=== PATIENT | male | born 1985 | race Caucasian/White ===

== ENCOUNTER 2021-04-14 16:30 | Emergency (ER) | payer BC ==
--- NOTE | 2021-04-14 17:14 | EDM.PDOC ---
ED HPI GENERAL MEDICAL PROBLEM - General Chief Complaint: Respiratory Problem Stated Complaint: SOB Time Seen by Provider: 04/14/21 16:36 Source of Information: Reports: Patient, RN Notes Reviewed History Limitations: Reports: No Limitations - History of Present Illness INITIAL COMMENTS - FREE TEXT/NARRATIVE: Patient is a 36-year-old male who presents to the ER for evaluation of his shortness of breath. Patient states he was at work around 2 PM, when he had a sudden sensation of feeling short of breath, and had some associated chest pressure. States he has not felt anything like this before. States that it got a little bit better prior to arrival to the ER, but when he gets back to the ER, he is still having some chest pressure and the sensation of shortness of breath. He is denying any fevers or chills, cough, or any sort of nausea/vomiting/diarrhea. He did not take any sort of medications for the discomfort. States he was told he had a history of atrial fibrillation and was on medications at some time, but is not taking any of these medications any longer because he was told he could quit. EKG done at time of triage demonstrates no sign of acute rhythm change like atrial fibrillation or any obvious ST change like ischemia. Patient states that he does work outside, and has been rather winded for the last few days, and somewhat ely please not sure if that has something to do with it as well. Patient is also requesting to be tested for COVID-19. Middle Chest Pain Score (Numeric/FACES): 8 - Related Data Allergies Allergy/AdvReac Type Severity Reaction Status Date / Time No Known Allergies Allergy Verified 04/14/21 16:38 Home Meds: Home Meds . [No Known Home Meds] 04/14/21 [History] Past Medical History Cardiovascular History: Reports: Afib ED ROS GENERAL - Review of Systems Review Of Systems: Comprehensive ROS is negative, except as noted in HPI. ED EXAM, GENERAL - Physical Exam Exam: See Below Exam Limited By: No Limitations General Appearance: Alert, WD/WN, No Apparent Distress, Anxious (generalized) Respiratory/Chest: No Respiratory Distress, Lungs Clear, Normal Breath Sounds, No Accessory Muscle Use, Chest Non-Tender Cardiovascular: Normal Peripheral Pulses, Regular Rate, Rhythm, No Edema Peripheral Pulses: 2+: Radial (L), Radial (R) GI/Abdominal: Normal Bowel Sounds, Soft, Non-Tender, No Distention, No Mass Extremities: Normal Inspection, Normal Capillary Refill Neurological: Alert, Oriented, Normal Cognition, No Motor/Sensory Deficits Psychiatric: Normal Affect, Normal Mood, Anxious (generalized) Skin Exam: Warm, Dry, Intact, Normal Color, No Rash #1 Interpretation EKG Date: 04/14/21 Time: 17:05 Rhythm: NSR Rate (Beats/Min): 80 [place]: Normal P-Wave: Present QRS: Normal ST-T: Normal QT: Normal Comparison: NA - No Prior EKG EKG Interpretation Comments: No obvious ischemia or acute ST changes noted, reviewed by myself and Dr. Chambers. Course - Vital Signs Last Recorded V/S: Last Vital Signs Temp 97.2 F 04/14/21 16:35 Pulse 83 04/14/21 16:35 Resp 18 04/14/21 16:35 BP 147/81 H 04/14/21 16:35 Pulse Ox 97 04/14/21 16:35 - Orders/Labs/Meds Orders: Active Orders 24 hr Category Date Time Status Chest 1V Frontal [CR] Stat Exams 04/14/21 16:39 Ordered Labs: Laboratory Tests 04/14/21 04/14/21 04/14/21 Range/Units 16:51 16:51 17:10 WBC 6.64 (4.23-9.07) K/mm3 RBC 4.78 (4.63-6.08) M/mm3 Hgb 15.3 (13.7-17.5) gm/dl Hct 43.9 (40.1-51.0) % MCV 91.8 (79.0-92.2) fl MCH 32.0 (25.7-32.2) pg MCHC 34.9 (32.2-35.5) g/dl RDW Std Deviation 41.1 (35.1-43.9) fL Plt Count 236 (163-337) K/mm3 MPV 10.1 (9.4-12.3) fl Neut % (Auto) 60.1 (34.0-67.9) % Lymph % (Auto) 26.7 (21.8-53.1) % Benson % (Auto) 10.7 (5.3-12.2) % Eos % (Auto) 2.0 (0.8-7.0) Baso % (Auto) 0.3 (0.1-1.2) % Neut # (Auto) 4.00 (1.78-5.38) K/mm3 Lymph # (Auto) 1.77 (1.32-3.57) K/mm3 Benson # (Auto) 0.71 (0.30-0.82) K/mm3 Eos # (Auto) 0.13 (0.04-0.54) K/mm3 Baso # (Auto) 0.02 (0.01-0.08) K/mm3 Sodium 140 (136-145) mEq/L Potassium 4.2 (3.5-5.1) mEq/L Chloride 104 (98-107) mEq/L Carbon Dioxide 26 (21-32) mEq/L Anion Gap 14.2 (5-15) BUN 17 (7-18) mg/dL Creatinine 1.2 (0.7-1.3) mg/dL Est Cr Clr Drug Dosing 89.77 mL/min Estimated GFR (MDRD) > 60 (>60) mL/min BUN/Creatinine Ratio 14.2 (14-18) Glucose 107 H (70-99) mg/dL Calcium 9.2 (8.5-10.1) mg/dL Total Bilirubin 0.5 (0.2-1.0) mg/dL AST 26 (15-37) U/L ALT 69 H (16-63) U/L Alkaline Phosphatase 98 (46-116) U/L Troponin I < 0.017 (0.00-0.056) ng/mL C-Reactive Protein 1.2 H* (<1.0) mg/dL Total Protein 7.9 (6.4-8.2) g/dl Albumin 4.0 (3.4-5.0) g/dl Globulin 3.9 gm/dL Albumin/Globulin Ratio 1.0 (1-2) SARS-CoV-2 RNA (ALESIA) Negative (NEGATIVE) - Re-Assessments/Exams Free Text/Narrative Re-Assessment/Exam: 04/14/21 17:13 Patient presents to the ER for evaluation of his chest pressure and shortness of breath. EKG done at time of triage demonstrates no acute ST change or other abnormalities. We will go ahead and get a chest x-ray, basic labs and a Covid screen for further evaluation. 04/14/21 18:14 Patient's Covid screen is negative, all other labs are essentially unremarkable, CRP is mildly elevated at 1.2. Patient could have some chest wall discomfort /pleuritic components causing his chest pressure, which in turn could make him short of breath. We will likely have him trial some ibuprofen every 6 hours for the next few days to see if this helps. Departure - Departure Time of Disposition: 18:20 Disposition: Home, Self-Care 01 Condition: Good Clinical Impression: Pleuritic chest pain - Discharge Information *PRESCRIPTION DRUG MONITORING PROGRAM REVIEWED*: No *COPY OF PRESCRIPTION DRUG MONITORING REPORT IN PATIENT SAPNA: No Instructions: Nonspecific Chest Pain, Adult, [id number] Referrals: PCP,None [Primary Care Provider] - Forms: ED Department Discharge Additional Instructions: You were evaluated in the ER today for your chest pain. Your EKG, chest x-ray, and laboratory evaluation are all unremarkable. The chest pain is thought likely due to an inflammation of the lining of your lungs causing you to have chest discomfort. Recommend you take 600 mg ibuprofen every 6 hours for the next few days to see if this helps relieve some of your pressure in your chest. If you are finding it more difficult to breathe when you are laying flat, you may sleep in a recliner or in an inclined position for the next few nights to see if this helps as well. Please follow-up with your regular provider for ongoing management of your health. Please return to the ER at any time if symptoms change or worsen. Sepsis Event Note (ED) - Evaluation Sepsis Screening Result: No Definite Risk - Focused Exam Vital Signs: Vital Signs Temp Pulse Resp BP Pulse Ox 04/14/21 16:35 97.2 F 83 18 147/81 H 97 - My Orders Last 24 Hours: My Active Orders 04/14/21 16:39 Chest 1V Frontal [CR] Stat - Assessment/Plan Last 24 Hours: My Active Orders 04/14/21 16:39 Chest 1V Frontal [CR] Stat
[2021-04-14] MEDS ORDERED: Ibuprofen 600 MG Tab PO ONE (18:20)
--- NOTE | 2021-04-14 18:31 | CR ---
Chest: Portable view of the chest was obtained. Comparison: No prior chest imaging is available. Heart size and mediastinum are within normal limits. Minimal nodule is seen within the lateral left costophrenic angle most likely representing a small granuloma. Lungs otherwise are clear. Bony structures show nothing acute. Impression: 1. Minimal nodule within the lateral left costophrenic angle most likely representing a small granuloma. 2. Nothing acute is otherwise seen on portable chest x-ray. Diagnostic code #2
== END 2021-04-14 18:45 | disposition home or self-care (01) ==
LOC: JD.ED 16:30 → EDBD 16:30 → JD.ED 18:45
DX: R07.81 Pleurodynia (principal); Z20.822 Contact with and (suspected) exposure to COVID-19
CPT/HCPCS: 36415; 71045; 80053; 84484; 85025; 86140; 87635; 93005; 99285; A9270; U0002